=== PATIENT | male | born 1980 | race African-American/Black ===

== ENCOUNTER 2020-09-20 21:35 | Emergency (ER) | payer OTHER ==
[2020-09-21] MEDS ORDERED: AUGMENTIN 875-1 EACH PO (03:41)
== END 2020-09-21 03:55 | disposition home or self-care (01) ==
LOC: FER 21:35
DX: S61.451A Open bite of right hand, initial encounter (principal); F17.200 Nicotine dependence, unspecified, uncomplicated; Z23 Encounter for immunization; W54.0XXA Bitten by dog, initial encounter; Y92.009 Unspecified place in unspecified non-institutional (private) residence as the place of occurrence of the external cause
CPT/HCPCS: 73130; 90471; 90715

== ENCOUNTER 2021-01-04 18:05 | Emergency (ER) | payer OTHER ==
[~2021-01-04 18:05] MED LIST: AUGMENTIN 875-1 EACH PO
[2021-01-04 20:00] LABS: BASOPHIL 0.5 % (0-2); EOSINOPHIL 0.9 % (0-5); HCT 36.2 % (42.0-52.0); HGB 12.2 g/dl (13.2-18.0); LYMPHOCYTE 13.6 % (15-48); MCH 27.6 pg (25.0-31.0); MCHC 33.7 g/dL (32.0-36.0); MCV 81.9 fL (78.0-100.0); MONOCYTE 11.6 % (0-12); MPV 9.3 fL (6.0-9.5); NEUTROPHIL 73.1 % (41-80); NRBC 0; PLT 167 K/uL (150-400); RBC 4.42 M/uL (4.70-6.00); RDW 17.6 % (11.5-14.0); WBC 7.4 K/uL (4.0-10.5)
[2021-01-04 20:21] LABS: CREATININE 0.75 mg/dL (0.67-1.17); POTASSIUM 3.9 mmol/L (3.5-5.1)
[2021-01-04] MEDS ORDERED: LEVETIRACETAM500 MG PO (20:54)
== END 2021-01-04 21:00 | disposition home or self-care (01) ==
LOC: FER 18:05
PROVIDERS: Nurse Practitioner Family
DX: G40.909 Epilepsy, unspecified, not intractable, without status epilepticus (principal); I10 Essential (primary) hypertension
CPT/HCPCS: 36415; 80048; 85025; J1953

== ENCOUNTER 2021-05-18 14:19 | Emergency (ER) | payer OTHER ==
[~2021-05-18 14:19] MED LIST changes: +LEVETIRACETAM500 MG PO
[2021-05-18] MEDS ORDERED: KEPPRA750 MG PO (17:00)
[2021-05-18] MEDS ORDERED: LISINOPRIL40 MG PO (17:00)
== END 2021-05-18 17:13 | disposition home or self-care (01) ==
LOC: FER 14:19
DX: G40.909 Epilepsy, unspecified, not intractable, without status epilepticus (principal); I10 Essential (primary) hypertension; F17.210 Nicotine dependence, cigarettes, uncomplicated; Z79.899 Other long term (current) drug therapy
CPT/HCPCS: 99284